=== PATIENT | male | born 1940 | race Caucasian/White ===

== ENCOUNTER 2023-02-07 14:16 | Emergency (ER) | payer OTHER, MEDICARE ==
[~2023-02-07] VITALS: Ht 175.3 cm; Wt 81.8 kg
[~2023-02-07 14:16] MED LIST: CLOP75TA34 PO; CYCL-1 PO; IPRA3AMP9 NEB; PANT40SU2 PO
[2023-02-07 14:28] VITALS: BP 147/72; PULSE 104; RESP 16; TEMP 98.5; O2SAT 97
[2023-02-07 15:02] LABS: BASOPHILS % (AUTO) 0.4 % (0-1); EOSINOPHILS # (AUTO) 0.1 X10'3 (0-0.9); EOSINOPHILS % (AUTO) 1.1 % (0-6); HEMATOCRIT 43.6 % (42.0-52.0); HEMOGLOBIN 14.8 g/dl (14.0-17.9); LYMPHOCYTES # (AUTO) 1.6 X10'3 (1.1-4.8); LYMPHOCYTES % (AUTO) 25.3 % (21-51); MEAN CORPUSCULAR HEMOGLOBIN 30.7 PG (27.0-31.0); MEAN CORPUSCULAR VOLUME 90.3 FL (78-98); MEAN PLATELET VOLUME 7.4 FL (7.4-10.4); MONOCYTES # (AUTO) 0.5 X10'3 (0-0.9); MONOCYTES % (AUTO) 7.7 % (2-12); NEUTROPHILS # (AUTO) 4.2 X10'3 (1.8-7.7); NEUTROPHILS % (AUTO) 65.5 % (42-75); PLATELET COUNT 306 X10'3 (140-440); RED BLOOD COUNT 4.83 X10'6 (4.70-6.10); RED CELL DISTRIBUTION WIDTH 15.5 % (11.5-14.5); WHITE BLOOD COUNT 6.4 X10'3 (4.5-11.0)
[2023-02-07 15:21] LABS: ALANINE AMINOTRANSFERASE 40 U/L (12-78); ALBUMIN 3.7 G/DL (3.4-5.0); ALBUMIN/GLOBULIN RATIO 0.9 (1.1-1.5); ALKALINE PHOSPHATASE 88 IU/L (46-116); ANION GAP 8 (8-16); ASPARTATE AMINO TRANSFERASE 31 U/L (10-37); BILIRUBIN,TOTAL 0.6 MG/DL (0.1-1.0); BLOOD UREA NITROGEN 6 MG/DL (7-18); BUN/CREATININE RATIO 5.7 (10.0-20.0); CALCIUM 9.3 MG/DL (8.5-10.1); CHLORIDE 96 MMOL/L (99-107); CREATININE 1.05 MG/DL (0.60-1.10); GLUCOSE 90 MG/DL (70-104); LIPASE 23 U/L (16-77); SODIUM 131 MMOL/L (135-145); TOTAL CARBON DIOXIDE 27.1 MMOL/L (24-32); TOTAL PROTEIN 7.9 G/DL (6.4-8.2); eCRCL 55 ML/MIN; eGFR 68 ML/MIN
== END 2023-02-07 22:02 | disposition left against medical advice (07) ==
LOC: ER 14:17
DX: R53.1 Weakness (principal); Z53.21 Procedure and treatment not carried out due to patient leaving prior to being seen by health care provider
CPT/HCPCS: 36415; 80053; 83690; 84145; 85025; 99281

== ENCOUNTER 2023-02-09 10:31 | Emergency (ER) | payer OTHER, MEDICARE ==
[~2023-02-09] VITALS: Ht 177.8 cm; Wt 94.0 kg
[2023-02-09 11:32] LABS: BASOPHILS % (AUTO) 0.3 % (0-1); EOSINOPHILS # (AUTO) 0.1 X10'3 (0-0.9); EOSINOPHILS % (AUTO) 0.9 % (0-6); HEMATOCRIT 47.9 % (42.0-52.0); HEMOGLOBIN 15.9 g/dl (14.0-17.9); LYMPHOCYTES # (AUTO) 1.3 X10'3 (1.1-4.8); LYMPHOCYTES % (AUTO) 19.1 % (21-51); MEAN CORPUSCULAR HEMOGLOBIN 30.3 PG (27.0-31.0); MEAN CORPUSCULAR HGB CONC 33.2 g/dL (33.0-36.5); MEAN CORPUSCULAR VOLUME 91.2 FL (78-98); MEAN PLATELET VOLUME 7.6 FL (7.4-10.4); MONOCYTES # (AUTO) 0.4 X10'3 (0-0.9); NEUTROPHILS # (AUTO) 4.9 X10'3 (1.8-7.7); NEUTROPHILS % (AUTO) 73.7 % (42-75); PLATELET COUNT 311 X10'3 (140-440); RED BLOOD COUNT 5.25 X10'6 (4.70-6.10); RED CELL DISTRIBUTION WIDTH 15.8 % (11.5-14.5); WHITE BLOOD COUNT 6.7 X10'3 (4.5-11.0)
[2023-02-09 11:49] LABS: ALANINE AMINOTRANSFERASE 27 U/L (12-78); ALBUMIN 3.6 G/DL (3.4-5.0); ALBUMIN/GLOBULIN RATIO 0.8 (1.1-1.5); ALKALINE PHOSPHATASE 86 IU/L (46-116); ANION GAP 8 (8-16); ASPARTATE AMINO TRANSFERASE 23 U/L (10-37); BILIRUBIN,TOTAL 0.5 MG/DL (0.1-1.0); BLOOD UREA NITROGEN 7 MG/DL (7-18); BUN/CREATININE RATIO 6.1 (10.0-20.0); CALCIUM 9.5 MG/DL (8.5-10.1); CHLORIDE 99 MMOL/L (99-107); CREATININE 1.15 MG/DL (0.60-1.10); GLUCOSE 116 MG/DL (70-104); LIPASE 35 U/L (16-77); SODIUM 136 MMOL/L (135-145); TOTAL CARBON DIOXIDE 28.6 MMOL/L (24-32); TOTAL PROTEIN 7.9 G/DL (6.4-8.2); eCRCL 52 ML/MIN; eGFR 61 ML/MIN
[2023-02-09] MEDS ORDERED: normal saline 1000ML IV soln IVB ONE (13:55)
[2023-02-09] MEDS ORDERED: ketorolac trometh. 30mg/ml inj. IV ONE (13:55)
[2023-02-09 14:58] VITALS: BP 109/78; PULSE 95; RESP 18; TEMP 97.9; O2SAT 98
== END 2023-02-09 14:58 | disposition home or self-care (01) ==
LOC: ER 10:32
DX: M54.50 Low back pain, unspecified (principal); R10.32 Left lower quadrant pain; E78.00 Pure hypercholesterolemia, unspecified; I10 Essential (primary) hypertension; J44.9 Chronic obstructive pulmonary disease, unspecified; Z88.8 Allergy status to other drugs, medicaments and biological substances; Z79.899 Other long term (current) drug therapy; Z88.1 Allergy status to other antibiotic agents
CPT/HCPCS: 36415; 74018; 80053; 83690; 85025; 96374; 99284; J1885; J7030

== ENCOUNTER 2024-05-02 10:29 | Emergency (ER) | payer OTHER, MEDICARE ==
[~2024-05-02] VITALS: Ht 177.8 cm; Wt 81.8 kg
[2024-05-02 10:33] VITALS: BP 159/36; PULSE 89; RESP 18; O2SAT 95
[2024-05-02] MEDS ORDERED: NYST30CR34 TOP (11:08)
[2024-05-02] MEDS ORDERED: TRIA15CR61 TOP (11:08)
[2024-05-02 11:18] VITALS: TEMP 97.5
== END 2024-05-02 11:23 | disposition home or self-care (01) ==
LOC: ER 10:30
DX: L28.0 Lichen simplex chronicus (principal); B37.9 Candidiasis, unspecified; E78.00 Pure hypercholesterolemia, unspecified; I10 Essential (primary) hypertension; J44.9 Chronic obstructive pulmonary disease, unspecified; F41.9 Anxiety disorder, unspecified; Z88.1 Allergy status to other antibiotic agents; Z79.899 Other long term (current) drug therapy
CPT/HCPCS: 99283

== ENCOUNTER 2024-11-14 09:26 | Emergency (ER) | payer OTHER, MEDICARE ==
[~2024-11-14] VITALS: Ht 177.8 cm; Wt 87.7 kg
[~2024-11-14 09:26] MED LIST changes: +NYST30CR28 TOP
[2024-11-14 09:43] VITALS: BP 132/63; PULSE 80; RESP 16; O2SAT 96
[2024-11-14 10:20] LABS: MEAN PLATELET VOLUME 7.1 FL (7.4-10.4); RED CELL DISTRIBUTION WIDTH 20.8 % (11.5-14.5)
[2024-11-14 10:46] LABS: CREATININE 0.94 MG/DL (0.60-1.10); PRO BRAIN NATRIURETIC PEPTIDE 257 PG/ML (0-450); TOTAL CARBON DIOXIDE 30.8 MMOL/L (24-32); eCRCL 61 ML/MIN; eGFR 77 ML/MIN
[2024-11-14 11:06] LABS: PLATELET ESTIMATE NORMAL
[2024-11-14 12:37] VITALS: TEMP 98.1
== END 2024-11-14 12:38 | disposition left against medical advice (07) ==
LOC: ER 09:26
DX: M79.89 Other specified soft tissue disorders (principal); Z88.1 Allergy status to other antibiotic agents; Z53.21 Procedure and treatment not carried out due to patient leaving prior to being seen by health care provider
CPT/HCPCS: 36415; 80048; 83880; 85008; 85025; 99281